=== PATIENT | male | born 1965 | race Asian ===

== ENCOUNTER 2017-04-26 16:53 | Emergency (ER) | payer SELFPAY ==
--- NOTE | 2017-04-26 17:35 | ED Physician Documentation ---
PD HPI SKIN - Stated complaint Stated Complaint: RT HAND PAIN - Chief complaint Chief Complaint: Wound - History obtained from History obtained from: Patient - History of Present Illness Timing - onset: Last night (had small area of bump and itching on hand last night and had redness/swelling developing today that has progressively increased through the day. No noted insect bite, but is presuming it. 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 No: Vesicular Associated symptoms: No: Fever, Myalgias Review of Systems Constitutional: denies: Fever, Chills, Myalgias Neurologic: denies: Focal weakness, Numbness PD PAST MEDICAL HISTORY - Past Medical History Cardiovascular: None Endocrine/Autoimmune: None - Present Medications Home Medications: Ambulatory Orders Medication Instructions Recorded Confirmed Cephalexin [Keflex] 500 mg PO QID #20 capsule 04/26/17 Dexamethasone [Decadron] 4 mg PO DAILY #5 tablet 04/26/17 - Allergies Allergies/Adverse Reactions: Allergies Allergy/AdvReac Type Severity Reaction Status Date / Time No Known Drug Allergies Allergy Verified 04/26/17 17:09 PD ED PE NORMAL - Vitals Vital signs reviewed: Yes - General General: Alert and oriented X 3, No acute distress, Well developed/nourished - Cardiac Cardiac: RRR, No murmur - Respiratory Respiratory: Clear bilaterally - Derm Derm: Normal color, Warm and dry - Extremities Extremities: Other (Right hand dorsum mostly around MCPs 2-4 with redness and swelling, warmth, with small focal tiny bump but not obvious puncture/stinger. Redness extends fadingly to the back or wrist level. ) Results - Vitals Vitals: Vital Signs - 24 hr 04/26/17 04/26/17 17:05 18:12 Temperature 36.1 C L 36.7 C Heart Rate 61 59 L Respiratory 14 18 Rate Blood Pressure 148/87 H 145/90 H O2 Saturation 100 97 Oxygen O2 Source Room air PD MEDICAL DECISION MAKING - ED course Complexity details: considered differential (had likely bite last night, with small bump and itching on hand, but did not see bug per se. Has redness and swelling that is steadily increasing through the day today. Might be local reaction to sting/bite, but without known sting and no focal spot to suggest sting site, would be concerned for cellulitis instead. ), d/w patient Departure - Departure Disposition: 01 Home, Self Care Clinical Impression: Cellulitis of hand, right Hand swelling Qualifiers: Laterality: right Qualified Code(s): M79.89 - Other specified soft tissue disorders Local reaction to insect sting Qualifiers: Encounter type: initial encounter Injury intent: accidental or unintentional Qualified Code(s): T63.481A - Toxic effect of venom of other arthropod, accidental (unintentional), initial encounter Condition: Stable Record reviewed to determine appropriate education?: Yes Instructions: ED Infec Skin Cellulitis, ED Bite Sting Insect Local Allergic React Prescriptions: Dexamethasone [Decadron] 4 mg PO DAILY #5 tablet Cephalexin [Keflex] 500 mg PO QID #20 capsule Print Language: [place]i Comments: This may be a local reaction to an insect bite or even a plant chemical during the yard work. If so some allergy medicine and steroid medicine should help improve it. Concern would be a skin infection instead and so we are give you some antibiotics to take for the next several days as well. Recheck if not improving in the next day or 2 and return sooner if a lot worse. Discharge Date/Time: 04/26/17 18:12
[2017-04-26] MEDS ORDERED: CETIRIZINE 10 MG TABLET PO STA (17:49)
[2017-04-26] MEDS ORDERED: diphenhydrAMINE 25 MG CAPSULE PO STA (17:49)
[2017-04-26] MEDS ORDERED: DEXAMETHASONE 10 MG/ML VIAL PO STA (17:49)
[2017-04-26] MEDS ORDERED: CEPHALEXIN 250 MG CAPSULE PO STA (17:49)
[2017-04-26] MEDS ORDERED: diphenhydrAMINE 25 MG CAPSULE PO ONE (17:58)
[2017-04-26] MEDS ORDERED: CEPHALEXIN 250 MG CAPSULE PO ONE (17:59)
[2017-04-26] MEDS ORDERED: CETIRIZINE 10 MG TABLET ONE (17:59)
[2017-04-26] MEDS ORDERED: DEXAMETHASONE 10 MG/ML VIAL ONE (17:59)
[2017-04-26 18:13] VITALS: BP 145/90
== END 2017-04-26 18:12 | disposition home or self-care (01) ==
LOC: ED 16:53
DX: T63.481A Toxic effect of venom of other arthropod, accidental (unintentional), initial encounter (principal)
CPT/HCPCS: 99283; A9270